=== PATIENT | male | born 1965 | race Caucasian/White ===

== ENCOUNTER 2023-09-12 05:07 | Day surgery (SDC) | payer OTHER ==
[2023-09-09 09:25] VITALS: BMI 28.3
[2023-09-12] MEDS: amLODIPine BESYLATE 10 MG TABLET (FP) PO ONE (07:12)
[2023-09-12] MEDS ORDERED: LIDOCAINE HCL/PF 2% SDV 5ML VIAL ONE (08:09)
[2023-09-12] MEDS ORDERED: MIDAZOLAM HCL 2 MG/2 ML SINGLE DOSE VIAL ONE (08:09)
[2023-09-12] MEDS ORDERED: PROPOFOL 20 ML ONE (08:09)
[2023-09-12] MEDS ORDERED: DEXTROSE 5%-0.45% SALINE 1,000 ML IV SCH (09:15)
[2023-09-12] MEDS ORDERED: ceFAZolin SODIUM 1 GM VIAL ONE (09:20)
[2023-09-12] MEDS: ceFAZolin SODIUM 1 GM VIAL IVPB ONE ×2 (09:20)
[2023-09-12] MEDS ORDERED: DEXAMETHASONE SOD PHOSPHATE 4 MG/1 ML VIAL ONE (09:20)
[2023-09-12] MEDS ORDERED: KETOROLAC TROMETHAMINE 30 MG/1 ML VIAL ONE (09:29)
[2023-09-12] MEDS ORDERED: ONDANSETRON 4 MG/2 ML VIAL ONE (09:29)
[2023-09-12] MEDS ORDERED: ONDANSETRON 4 MG/2 ML VIAL IVPUSH PRN (09:52)
[2023-09-12] MEDS ORDERED: PROMETHAZINE HCL 25 MG/1 ML VIAL IVPB PRN (09:52)
[2023-09-12] MEDS ORDERED: oxyCODONE HCL 5 MG TABLET PO PRN ×2 (09:52)
[2023-09-12] MEDS ORDERED: ACETAMINOPHEN INJECTION 100 ML IVPB ONE (10:15)
[2023-09-12] MEDS: LACTATED RINGERS SOLUTION 1,000 ML IV SCH (10:30)
[2023-09-12] MEDS: ACETAMINOPHEN 1000 MG/100 ML BAG IVPB ONE (10:30)
[2023-09-12 11:12] VITALS: RESP 16; TEMP 97.8
[2023-09-12 11:53] VITALS: BP 160/88; PULSE 72
== END 2023-09-12 12:06 | disposition home or self-care (01) ==
LOC: JASU-SURG 05:07
PROVIDERS: ATTEND Urology
PROC: 0VB07ZX Excision of Prostate, Via Natural or Artificial Opening, Diagnostic (ICD-10-PCS; 2023-09-12)
PROC: 0V507ZZ Destruction of Prostate, Via Natural or Artificial Opening (ICD-10-PCS; principal; 2023-09-12 08:30)
DX: N20.1 Calculus of ureter (principal); N40.1 Benign prostatic hyperplasia with lower urinary tract symptoms; R33.8 Other retention of urine
CPT/HCPCS: 82962; 88305-TC; 94760; J0131